=== PATIENT | female | born 1995 | race Caucasian/White ===

== ENCOUNTER 2017-03-17 11:20 | Emergency (ER) | payer OTHER ==
[2017-03-17 11:24] VITALS: BP 117/74; PULSE 81; RESP 16; TEMP 97.8; O2SAT 98
[2017-03-17 11:25] VITALS: BMI 19.4
--- NOTE | 2017-03-17 12:32 | ED PDOC ---
HPI: Female Pain Time Seen by Provider: 03/17/17 11:53 Chief Complaint (Nursing): Female Genitourinary Chief Complaint (Provider): Female Genitourinary History Per: Patient History/Exam Limitations: no limitations Onset/Duration Of Symptoms: Days (x1) Current Symptoms Are (Timing): Still Present Additional Complaint(s): Dylan Mistry is a 21 year old female presenting to the ED for an evaluation of a possible tampon stuck in her vagina occurring 1 day prior to arrival. The patient reports remembering putting the tampon inside but does not remember taking out the tampon yesterday. She states she feels as if the tampon is still in there because she cannot feel the string. The patient is complaining of associated body aches. She denies fever, chills, nausea, vomiting, abdominal pain, or back pain. PMD: Non [facility] Provider Past Medical History Reviewed: Historical Data, Nursing Documentation, Vital Signs Vital Signs: Last Vital Signs Temp 97.8 F 03/17/17 11:23 Pulse 81 03/17/17 11:23 Resp 16 03/17/17 11:23 BP 117/74 03/17/17 11:23 Pulse Ox 98 03/17/17 11:23 - Medical History PMH: No Chronic Diseases - Family History Family History: States: No Known Family Hx - Social History Current smoker - smoking cessation education provided: No Ex-Smoker (has not smoked in the last 12 months): No Alcohol: None Drugs: Denies - Home Medications Home Medications: Ambulatory Orders Medication Instructions Recorded Sulfamethoxazole/Trimethoprim 1 tab PO BID #14 tab 03/17/17 [Bactrim DS 800 mg-160 mg] - Allergies Allergies/Adverse Reactions: Allergies Allergy/AdvReac Type Severity Reaction Status Date / Time No Known Allergies Allergy Verified 03/17/17 11:31 Review of Systems ROS Statement: Except As Marked, All Systems Reviewed And Found Negative Constitutional: Negative for: Fever, Chills Gastrointestinal: Negative for: Nausea, Vomiting, Abdominal Pain Musculoskeletal: Positive for: Other (generalized body aches). Negative for: Back Pain Physical Exam - Reviewed Nursing Documentation Reviewed: Yes Vital Signs Reviewed: Yes - Physical Exam Appears: Positive for: Non-toxic, No Acute Distress Head Exam: Positive for: ATRAUMATIC, NORMOCEPHALIC Cardiovascular/Chest: Positive for: Regular Rate, Rhythm, Chest Non Tender Respiratory: Positive for: Normal Breath Sounds. Negative for: Respiratory Distress Gastrointestinal/Abdominal: Positive for: Normal Exam, Soft. Negative for: Tenderness Pelvic Exam: Positive for: Speculum Exam Normal (no foreign body noted; OS is closed), Bimanual Exam Normal (no foreign body noted), Active Bleeding (due to menstruation ). Negative for: Discharge (no ) Back: Positive for: Normal Inspection. Negative for: L CVA Tenderness, R CVA Tenderness, Vertebral Tenderness Neurologic/Psych: Positive for: Alert, Oriented (x3). Negative for: Motor/ Sensory Deficits - ECG O2 Sat by Pulse Oximetry: 98 (RA) Pulse Ox Interpretation: Normal Medical Decision Making Medical Decision Making: Time: 11:53 Impression: Possible tampon stuck in vagina Plan: Following initial examination, patient is still convinced something is still inside. Will do an ultrasound on patient. * [US] Pelvis/Transvag-No FB * * Reevaluation Scribe Attestation: Documented by Angelina Cuellar, acting as a scribe for Bruna Lang PA-C. Provider Scribe Attestation: All medical record entries made by the Scribe were at my direction and personally dictated by me. I have reviewed the chart and agree that the record accurately reflects my personal performance of the history, physical exam, medical decision making, and the department course for this patient. I have also personally directed, reviewed, and agree with the discharge instructions and disposition. Disposition - Clinical Impression Clinical Impression: Normal vaginal exam, Retained tampon - Patient ED Disposition Is Patient to be Admitted: No Counseled Patient/Family Regarding: Need For Followup, Rx Given - Disposition Disposition: Routine/Home Disposition Time: 14:29 Condition: STABLE Prescriptions: Sulfamethoxazole/Trimethoprim [Bactrim DS 800 mg-160 mg] 1 tab PO BID #14 tab Instructions: Pap Smear (ED) Forms: [employer] (Bel[place]ian)
--- NOTE | 2017-03-17 14:23 | US ---
PROCEDURE: Pelvic ultrasound dated 03/17/2017 HISTORY: ? FB COMPARISON: No prior study available for comparison TECHNIQUE: Transabdominal and transvaginal sonography performed. FINDINGS: The uterus is anteverted measuring approximately 6.9 x 3.3 x 3.7 cm. Endometrial stripe measures 6 mm. There are no echogenic foreign bodies identified within the endometrial canal. The right ovary measures approximately 2.7 x 1.8 x 2.3 cm and exhibits arterial flow. Left ovary measures approximately 2.5 x 1.2 x 2.2 cm and also exhibits arterial flow. No free fluid seen in the cul sac. IMPRESSION: Unremarkable pelvic ultrasound as above. . There are no echogenic foreign bodies identified on this study
== END 2017-03-17 15:06 | disposition home or self-care (01) ==
LOC: H.ER 11:20
DX: T19.2XXA Foreign body in vulva and vagina, initial encounter (principal); Y92.89 Other specified places as the place of occurrence of the external cause